=== PATIENT | male | born 1945 | race Caucasian/White ===

== ENCOUNTER 2021-06-13 12:44 | Inpatient (IN) | payer MEDICARE ==
[2021-06-13 13:25] LABS: #Monocytes 0.9 10x3/uL (0.0-1.1); #Neutrophils 12.6 10x3/uL (1.5-8.4); %Basophils 0.2 % (0.0-2.0); %Eosinophils 0.1 % (0.0-6.0); %Lymphocytes 6.7 % (18.0-47.0); %Monocytes 5.8 % (0.0-10.0); %Neutrophils 86.9 % (40.0-75.0); Hemoglobin 13.9 g/dL (13.5-17.5); Mean Corpuscular HGB CONC 34.2 g/dL (32.0-36.0); Mean Corpuscular Hemoglobin 31.4 pg (27.0-33.0); Mean Corpuscular Volume 91.9 fl (81.2-95.1); Mean Platelet Volume 9.4 fl (7.4-10.4); Platelet Count 203 10x3/uL (150-450); RBC Distribution Width 12.7 % (11.5-14.5); Red Blood Cell (RBC) Count 4.43 10x6/uL (4.32-5.72); White Blood Cell (WBC) Count 14.6 10x3/uL (3.5-10.5)
[2021-06-13 13:40] LABS: ALT (SGPT) 14 U/L (8-55); AST (SGOT) 13 U/L (5-34); Alkaline Phosphatase 80 U/L (40-110); Anion Gap 14 mmol/L (10-20); BUN (Urea Nitrogen) 18 mg/dL (8.4-25.7); Bilirubin, Total 0.8 mg/dL (0.2-1.2); CK (CPK) 76 U/L (30-200); Calc. Creatinine Clearance 0 mL/min (70-130); Calcium 9.2 mg/dL (7.8-10.44); Carbon Dioxide 24 mmol/L (23-31); Chloride 104 mmol/L (98-107); Globulin 2.4 g/dL (2.4-3.5); Glucose 106 mg/dL (83-110); Magnesium 1.5 mg/dL (1.6-2.6); Potassium 3.7 mmol/L (3.5-5.1); Protein, Total 6.4 g/dL (5.8-8.1); Sodium 138 mmol/L (136-145)
[2021-06-13 15:16] LABS: Bilirubin Neg (Negative); Blood, Urine Negative (Negative); Clarity Clear (Clear); Glucose, Urine (Dipstick) Normal (Negative); Ketone, Urine Negative (Negative); Leukocyte Negative (Negative); Nitrite Negative (Negative); Protein, Urine (Dipstick) Negative (Neg-Trace); Specific Gravity, Urine 1.015 (1.002-1.036); Urobilinogen Normal mg/dL (Less than 2)
[2021-06-13] MEDS ORDERED: Senokot S 8.6-50 MG TAB PO PRN (18:06)
[2021-06-13] MEDS ORDERED: Calcium Carbonate 500 MG ChewTAB PO PRN (18:06)
[2021-06-13] MEDS ORDERED: Ondansetron ODT 4 MG TAB PO PRN (18:06)
[2021-06-13] MEDS ORDERED: HumaLOG 300 UNITS/3 ML VIAL SC PRN ×2 (18:13)
[2021-06-13] MEDS ORDERED: Dextrose 50% Abboject 50 ML SYRINGE SLOW IVP PRN (18:13)
[2021-06-13] MEDS ORDERED: Dextrose 5% in Water 1,000 ML IV PRN (18:13)
[2021-06-13] MEDS ORDERED: predniSONE 20 MG TAB PO SCH (18:15)
[2021-06-13] MEDS ORDERED: Magnesium 2 GM/50 ML 2 GM in Premix Bag 1 BAG IVPB SCH (18:30)
[2021-06-13 20:17] VITALS: BMI 28.3
[2021-06-13] MEDS: Acetaminophen 325 MG TAB PO PRN (22:27)
[2021-06-13] MEDS: hydrALAZINE 25 MG TAB PO SCH (22:27)
[2021-06-13] MEDS: Zolpidem Tartrate 5 MG TAB PO PRN (23:12)
[2021-06-14 05:49] LABS: #Basophils 0.1 10x3/uL (0.0-0.2); #Eosinphils 0.2 10x3/uL (0.0-0.5); #Monocytes 0.7 10x3/uL (0.0-1.1); #Neutrophils 7.5 10x3/uL (1.5-8.4); %Basophils 0.5 % (0.0-2.0); %Eosinophils 2.2 % (0.0-6.0); %Lymphocytes 14.6 % (18.0-47.0); %Monocytes 6.6 % (0.0-10.0); %Neutrophils 75.6 % (40.0-75.0); Hemoglobin 12.4 g/dL (13.5-17.5); Mean Corpuscular HGB CONC 33.7 g/dL (32.0-36.0); Mean Corpuscular Hemoglobin 31.2 pg (27.0-33.0); Mean Corpuscular Volume 92.5 fl (81.2-95.1); Mean Platelet Volume 9.8 fl (7.4-10.4); Platelet Count 181 10x3/uL (150-450); RBC Distribution Width 12.6 % (11.5-14.5); Red Blood Cell (RBC) Count 3.98 10x6/uL (4.32-5.72)
[2021-06-14 05:56] LABS: Anion Gap 12 mmol/L (10-20); BUN (Urea Nitrogen) 20 mg/dL (8.4-25.7); Calc. Creatinine Clearance 79 mL/min (70-130); Calcium 8.6 mg/dL (7.8-10.44); Carbon Dioxide 24 mmol/L (23-31); Chloride 105 mmol/L (98-107); Glucose 100 mg/dL (83-110); Magnesium 1.8 mg/dL (1.6-2.6); Potassium 3.8 mmol/L (3.5-5.1); Sodium 137 mmol/L (136-145)
[2021-06-14] MEDS ORDERED: predniSONE 20 MG TAB PO SCH (08:00)
[2021-06-14] MEDS: hydrALAZINE 25 MG TAB PO SCH ×2 (09:13→21:16)
[2021-06-14] MEDS: Clopidogrel Bisulfate 75 MG TAB PO SCH (09:13)
[2021-06-14] MEDS: Amlodipine 5 MG TAB PO SCH (09:13)
[2021-06-14] MEDS: Potassium Chloride 20 MEQ TAB PO SCH ×2 (09:13→16:58)
[2021-06-14] MEDS: Aspirin Chewable 81 MG TAB PO SCH (09:14)
[2021-06-14] MEDS: Acetaminophen 325 MG TAB PO PRN ×2 (09:14→21:17)
[2021-06-14 17:01] LABS: SARS-CoV-2 PCR by NAA Not Detected (NotDetected)
[2021-06-14] MEDS: Zolpidem Tartrate 5 MG TAB PO PRN (21:17)
[2021-06-15 04:51] LABS: Anion Gap 13 mmol/L (10-20); BUN (Urea Nitrogen) 17 mg/dL (8.4-25.7); Calc. Creatinine Clearance 93 mL/min (70-130); Calcium 8.9 mg/dL (7.8-10.44); Carbon Dioxide 23 mmol/L (23-31); Chloride 105 mmol/L (98-107); Glucose 118 mg/dL (83-110); Potassium 3.7 mmol/L (3.5-5.1); Sodium 137 mmol/L (136-145)
[2021-06-15 05:03] LABS: #Eosinphils 0.2 10x3/uL (0.0-0.5); #Monocytes 0.6 10x3/uL (0.0-1.1); #Neutrophils 5.6 10x3/uL (1.5-8.4); %Basophils 0.3 % (0.0-2.0); %Eosinophils 2.1 % (0.0-6.0); %Lymphocytes 17.3 % (18.0-47.0); %Monocytes 7.8 % (0.0-10.0); Hemoglobin 13.2 g/dL (13.5-17.5); Mean Corpuscular HGB CONC 35.4 g/dL (32.0-36.0); Mean Corpuscular Volume 90.5 fl (81.2-95.1); Mean Platelet Volume 9.7 fl (7.4-10.4); Platelet Count 187 10x3/uL (150-450); RBC Distribution Width 12.4 % (11.5-14.5); Red Blood Cell (RBC) Count 4.12 10x6/uL (4.32-5.72); White Blood Cell (WBC) Count 7.7 10x3/uL (3.5-10.5)
[2021-06-15] MEDS: Amlodipine 5 MG TAB PO SCH (06:12)
[2021-06-15] MEDS: Clopidogrel Bisulfate 75 MG TAB PO SCH (09:13)
[2021-06-15] MEDS: predniSONE 20 MG TAB PO SCH (09:13)
[2021-06-15] MEDS: Potassium Chloride 20 MEQ TAB PO SCH ×2 (09:13→17:23)
[2021-06-15] MEDS: Aspirin Chewable 81 MG TAB PO SCH (09:13)
[2021-06-15] MEDS: hydrALAZINE 25 MG TAB PO SCH ×2 (09:13→22:05)
[2021-06-15] MEDS: Acetaminophen 325 MG TAB PO PRN (09:17)
[2021-06-15] MEDS ORDERED: hydrALAZINE 25 MG TAB PO SCH (12:45)
[2021-06-16 04:41] LABS: #Eosinphils 0.1 10x3/uL (0.0-0.5); #Monocytes 0.6 10x3/uL (0.0-1.1); #Neutrophils 5.3 10x3/uL (1.5-8.4); %Basophils 0.3 % (0.0-2.0); %Eosinophils 0.9 % (0.0-6.0); %Monocytes 7.9 % (0.0-10.0); %Neutrophils 71.5 % (40.0-75.0); Hemoglobin 13.5 g/dL (13.5-17.5); Mean Corpuscular HGB CONC 34.7 g/dL (32.0-36.0); Mean Corpuscular Hemoglobin 31.3 pg (27.0-33.0); Mean Corpuscular Volume 90.3 fl (81.2-95.1); Mean Platelet Volume 9.8 fl (7.4-10.4); Platelet Count 214 10x3/uL (150-450); RBC Distribution Width 12.6 % (11.5-14.5); Red Blood Cell (RBC) Count 4.31 10x6/uL (4.32-5.72); White Blood Cell (WBC) Count 7.5 10x3/uL (3.5-10.5)
[2021-06-16 04:56] LABS: Anion Gap 14 mmol/L (10-20); BUN (Urea Nitrogen) 17 mg/dL (8.4-25.7); Calc. Creatinine Clearance 91 mL/min (70-130); Calcium 8.9 mg/dL (7.8-10.44); Carbon Dioxide 22 mmol/L (23-31); Chloride 106 mmol/L (98-107); Glucose 110 mg/dL (83-110); Potassium 3.7 mmol/L (3.5-5.1); Sodium 138 mmol/L (136-145)
[2021-06-16] MEDS: Aspirin Chewable 81 MG TAB PO SCH (08:36)
[2021-06-16] MEDS: Amlodipine 10 MG TAB PO SCH (08:36)
[2021-06-16] MEDS: Clopidogrel Bisulfate 75 MG TAB PO SCH (08:36)
[2021-06-16] MEDS: predniSONE 20 MG TAB PO SCH (08:36)
[2021-06-16] MEDS: Potassium Chloride 20 MEQ TAB PO SCH ×2 (08:37→16:41)
[2021-06-16] MEDS ORDERED: hydrALAZINE 25 MG TAB PO SCH (09:00)
[2021-06-16] MEDS: Acetaminophen 325 MG TAB PO PRN ×2 (12:22→21:42)
[2021-06-16] MEDS: hydrALAZINE 25 MG TAB PO SCH (20:06)
[2021-06-17] MEDS ORDERED: hydrALAZINE 20 MG/ML VIAL SLOW IVP PRN (01:36)
[2021-06-17] MEDS: Acetaminophen 325 MG TAB PO PRN ×2 (04:08→09:49)
[2021-06-17 04:22] LABS: #Monocytes 0.7 10x3/uL (0.0-1.1); #Neutrophils 4.3 10x3/uL (1.5-8.4); %Basophils 0.4 % (0.0-2.0); %Eosinophils 0.6 % (0.0-6.0); %Lymphocytes 27.7 % (18.0-47.0); %Monocytes 9.5 % (0.0-10.0); %Neutrophils 61.4 % (40.0-75.0); Hemoglobin 14.8 g/dL (13.5-17.5); Mean Corpuscular HGB CONC 35.2 g/dL (32.0-36.0); Mean Corpuscular Hemoglobin 31.5 pg (27.0-33.0); Mean Corpuscular Volume 89.4 fl (81.2-95.1); Mean Platelet Volume 9.6 fl (7.4-10.4); Platelet Count 276 10x3/uL (150-450); RBC Distribution Width 12.4 % (11.5-14.5); White Blood Cell (WBC) Count 7.1 10x3/uL (3.5-10.5)
[2021-06-17 04:38] LABS: Anion Gap 16 mmol/L (10-20); BUN (Urea Nitrogen) 18 mg/dL (8.4-25.7); Calc. Creatinine Clearance 93 mL/min (70-130); Calcium 9.4 mg/dL (7.8-10.44); Carbon Dioxide 19 mmol/L (23-31); Chloride 106 mmol/L (98-107); Glucose 113 mg/dL (83-110); Potassium 3.8 mmol/L (3.5-5.1); Sodium 137 mmol/L (136-145)
[2021-06-17] MEDS: Amlodipine 10 MG TAB PO SCH (09:47)
[2021-06-17] MEDS: predniSONE 20 MG TAB PO SCH (09:47)
[2021-06-17] MEDS: hydrALAZINE 25 MG TAB PO SCH (09:48)
[2021-06-17] MEDS: Potassium Chloride 20 MEQ TAB PO SCH (09:48)
[2021-06-17] MEDS: Aspirin Chewable 81 MG TAB PO SCH (09:49)
[2021-06-17] MEDS: Clopidogrel Bisulfate 75 MG TAB PO SCH (09:58)
[2021-06-17] MEDS ORDERED: cloNIDine 0.1 MG TAB PO SCH (12:00)
[2021-06-17 13:19] VITALS: TEMP 97.7
[2021-06-17 14:33] VITALS: BP 158/81
[2021-06-17] MEDS ORDERED: hydrALAZINE 25 MG TAB PO SCH (15:00)
== END 2021-06-17 15:00 | DRG 552 ==
LOC: CSHERS 12:44 → CSHTELE 19:22 → UNDOADMIN 19:22 → CSHTELE 06-15 06:35
PROVIDERS: ADMIT Family Medicine; ATTEND Internal Medicine
DX: M54.31 Sciatica, right side (principal); M35.3 Polymyalgia rheumatica; I25.10 Atherosclerotic heart disease of native coronary artery without angina pectoris; I10 Essential (primary) hypertension; E78.5 Hyperlipidemia, unspecified; D72.829 Elevated white blood cell count, unspecified; E11.51 Type 2 diabetes mellitus with diabetic peripheral angiopathy without gangrene; W19.XXXA Unspecified fall, initial encounter; E78.00 Pure hypercholesterolemia, unspecified; Z88.8 Allergy status to other drugs, medicaments and biological substances; Z79.899 Other long term (current) drug therapy; Z95.1 Presence of aortocoronary bypass graft; Z98.890 Other specified postprocedural states; Z79.82 Long term (current) use of aspirin; Y92.9 Unspecified place or not applicable; Z20.822 Contact with and (suspected) exposure to COVID-19
CPT/HCPCS: 36415; 36416; 51701; 70450; 71045; 72170; 80048; 80053; 81003; 82550; 83735; 84443; 84484; 85025; 93005; J0360; J1815; J7512; U0003; U0005

== ENCOUNTER 2024-05-03 09:09 | Inpatient (IN) | payer MEDICARE ==
[2024-05-03 09:57] LABS: Actual Bicarbonate (HCO3v) 20.9 mEq/L (22-28); Analyzer IN Cardio CS ER; Base Excess -3.3 mEq/L (-2 - +2); Calcium, Ionized (venous) 1.12 mmol/L (1.16-1.32); Chloride (VBG) 102 mmol/L (98-106); Hematocrit-VBG 38 % (42.0-52.0); Hemoglobin (Hb) 12.9 g/dL (12.6-17.4); Potassium (VBG) 3.52 mmol/L (3.70-5.30); Puncture Site Other Site; RapidComm Collect By CBN; Sodium 137 mmol/L (133-146); pH (venous) 7.393 (7.32-7.43)
[2024-05-03 10:29] LABS: #Basophils 0.02 10x3/uL (0.0-0.2); #Eosinophils 0.03 10x3/uL (0.0-0.5); #Monocytes 0.56 10x3/uL (0.0-1.1); %Basophils 0.5 % (0.0-2.0); %Eosinophils 0.7 % (0.0-6.0); %Lymphocytes 21.2 % (18.0-47.0); %Monocytes 12.8 % (0.0-10.0); %Neutrophils 63.9 % (40.0-75.0); Hematocrit 35.4 % (38.8-50.0); Hemoglobin 11.9 g/dL (13.5-17.5); Mean Corpuscular HGB CONC 33.6 g/dL (32.0-36.0); Mean Corpuscular Hemoglobin 30.3 pg (27.0-33.0); Mean Corpuscular Volume 90.1 fL (81.2-95.1); Mean Platelet Volume 9.8 fL (7.4-10.4); Platelet Count 199 10x3/uL (150-450); RBC Distribution Width 13.4 % (11.5-14.5); Red Blood Cell (RBC) Count 3.93 10x6/uL (4.32-5.72); White Blood Cell (WBC) Count 4.4 10x3/uL (3.5-10.5)
[2024-05-03 10:44] LABS: ALT (SGPT) 16 U/L (8-55); AST (SGOT) 19 U/L (5-34); Albumin 3.7 g/dL (3.4-4.8); Alkaline Phosphatase 58 U/L (40-110); Anion Gap 13 mmol/L (10-20); BUN (Urea Nitrogen) 20 mg/dL (8.4-25.7); Bilirubin, Total 0.9 mg/dL (0.2-1.2); Calc. Creatinine Clearance 0 mL/min (70-130); Calcium 8.6 mg/dL (7.8-10.44); Carbon Dioxide 22 mmol/L (23-31); Chloride 107 mmol/L (98-107); Estimated GFR 87; Globulin 1.7 g/dL (2.4-3.5); Glucose 82 mg/dL (83-110); Magnesium 1.7 mg/dL (1.6-2.6); Potassium 3.6 mmol/L (3.5-5.1); Protein, Total 5.4 g/dL (5.8-8.1); Sodium 138 mmol/L (136-145)
[2024-05-03 10:47] LABS: Troponin I 0.041 ng/mL (< 0.028)
[2024-05-03 11:55] LABS: Troponin I 0.041 ng/mL (< 0.028)
[2024-05-03] MEDS ORDERED: cefTRIAXone (ROCEPHIN) 1 GM VIAL ONE (12:03)
[2024-05-03] MEDS ORDERED: Azithromycin 500 MG VIAL ONE (13:15)
[2024-05-03] MEDS ORDERED: Acetaminophen 500 MG TAB ONE (13:43)
[2024-05-03] MEDS ORDERED: Ondansetron ODT 4 MG TAB PO PRN (14:09)
[2024-05-03] MEDS ORDERED: Acetaminophen 650 MG Suppository PR PRN (14:09)
[2024-05-03] MEDS ORDERED: Acetaminophen 325 MG TAB PO PRN (14:09)
[2024-05-03] MEDS ORDERED: Ipratropium/Albuterol 3 ML NEB NEB PRN (14:14)
[2024-05-03] MEDS ORDERED: Dextrose 5% in Water 1,000 ML IV PRN (14:17)
[2024-05-03] MEDS ORDERED: Insulin Lispro 100 UNIT/ML 10 ML VIAL SC PRN ×2 (14:17)
[2024-05-03] MEDS ORDERED: Dextrose 50% Abboject 50 ML SYRINGE SLOW IVP PRN (14:17)
[2024-05-03] MEDS ORDERED: Glucagon 1 MG/ML KIT IM PRN (14:17)
[2024-05-03 14:27] LABS: Bilirubin Neg (Negative); Blood, Urine Negative (Negative); Clarity Clear (Clear); Glucose, Urine (Dipstick) Normal (Negative); Ketone, Urine Negative (Negative); Leukocyte 500 (Negative); Nitrite Negative (Negative); Protein, Urine (Dipstick) 15 mg/dl (Neg-Trace); Specific Gravity, Urine 1.015 (1.005-1.030); Urobilinogen Normal mg/dL (Less than 2)
[2024-05-03 15:29] VITALS: BMI 28.1
[2024-05-03] MEDS ORDERED: cefTRIAXone\\ROCEPHIN 1 GM in Sodium Chloride 0.9% 100 ML IVPB SCH (16:00)
[2024-05-03 16:12] LABS: CAUTI Indications for Culture Alt mental st,lethar; RBC/HPF 0-3 HPF (0-3); WBC/HPF 0-3 HPF (0-3)
[2024-05-03 16:13] LABS: Squamous Epithelial 0-3 HPF (0-3)
[2024-05-03 16:17] LABS: Bacteria/HPF 1+ HPF (None Seen)
[2024-05-03 16:19] LABS: Urine Culture Reflex No No
[2024-05-03] MEDS: Potassium Chloride 20 MEQ, Admixture Fee 1 EACH in Lactated Ringer's 1,000 ML IV SCH (16:57)
[2024-05-03] MEDS: predniSONE 20 MG TAB PO SCH (16:57)
[2024-05-03] MEDS: Cilostazol 100 MG TAB PO SCH (20:41)
[2024-05-03] MEDS: hydrALAZINE 25 MG TAB PO SCH (20:42)
[2024-05-03] MEDS: Famotidine 20 MG TAB PO SCH (20:43)
[2024-05-03] MEDS: Ipratropium/Albuterol 3 ML NEB NEB SCH (21:04)
[2024-05-04 03:54] LABS: Anion Gap 15 mmol/L (10-20); BUN (Urea Nitrogen) 13 mg/dL (8.4-25.7); Calc. Creatinine Clearance 98 mL/min (70-130); Calcium 8.7 mg/dL (7.8-10.44); Carbon Dioxide 19 mmol/L (23-31); Chloride 106 mmol/L (98-107); Estimated GFR 91; Glucose 96 mg/dL (83-110); Potassium 4.1 mmol/L (3.5-5.1); Sodium 136 mmol/L (136-145)
[2024-05-04 04:00] LABS: #Basophils 0.02 10x3/uL (0.0-0.2); #Eosinophils 0.03 10x3/uL (0.0-0.5); #Monocytes 0.32 10x3/uL (0.0-1.1); #Neutrophils 4.82 10x3/uL (1.5-8.4); %Basophils 0.3 % (0.0-2.0); %Eosinophils 0.5 % (0.0-6.0); %Lymphocytes 9.8 % (18.0-47.0); %Monocytes 5.5 % (0.0-10.0); %Neutrophils 83.4 % (40.0-75.0); Hematocrit 38.4 % (38.8-50.0); Hemoglobin 12.8 g/dL (13.5-17.5); Mean Corpuscular HGB CONC 33.3 g/dL (32.0-36.0); Mean Corpuscular Hemoglobin 29.9 pg (27.0-33.0); Mean Corpuscular Volume 89.7 fL (81.2-95.1); Mean Platelet Volume 9.7 fL (7.4-10.4); Platelet Count 220 10x3/uL (150-450); RBC Distribution Width 13.2 % (11.5-14.5); Red Blood Cell (RBC) Count 4.28 10x6/uL (4.32-5.72); White Blood Cell (WBC) Count 5.8 10x3/uL (3.5-10.5)
[2024-05-04] MEDS: Clotrimazole 1% Cream 15 GM TUBE TOP SCH (06:48)
[2024-05-04] MEDS: Enoxaparin 40 MG (0.4 mL) SYRINGE SC SCH (09:22)
[2024-05-04] MEDS: Aspirin 81 mg Enteric Coated Tablet PO SCH (09:23)
[2024-05-04] MEDS: Tamsulosin HCl 0.4 MG CAP PO SCH (09:24)
[2024-05-04] MEDS: Clopidogrel Bisulfate 75 MG TAB PO SCH (09:24)
[2024-05-04] MEDS: Amlodipine 10 MG TAB PO SCH (09:24)
[2024-05-04] MEDS: predniSONE 20 MG TAB PO SCH (09:25)
[2024-05-04] MEDS: Sertraline 100 MG TAB PO SCH (09:26)
[2024-05-04] MEDS: cefTRIAXone\\ROCEPHIN 1 GM in Sodium Chloride 0.9% 100 ML IVPB SCH (12:17)
[2024-05-04] MEDS: Azithromycin 500 MG in Sodium Chloride 0.9% 250 ML 250 ML IVPB SCH (13:35)
[2024-05-05] MEDS: Ondansetron PF 4 MG/2 ML Vial IVP PRN (13:30)
[2024-05-06] MEDS: predniSONE 20 MG TAB PO SCH (08:25)
[2024-05-07] MEDS: Pregabalin 50 MG CAP PO SCH (20:29)
[2024-05-07] MEDS: Hydroxychloroquine Sulfate 200 MG TAB PO SCH (20:29)
[2024-05-08 04:06] LABS: Anion Gap 14 mmol/L (10-20); BUN (Urea Nitrogen) 21 mg/dL (8.4-25.7); Calc. Creatinine Clearance 88 mL/min (70-130); Calcium 8.7 mg/dL (7.8-10.44); Carbon Dioxide 21 mmol/L (23-31); Chloride 106 mmol/L (98-107); Estimated GFR 88; Glucose 105 mg/dL (83-110); Potassium 3.5 mmol/L (3.5-5.1); Sodium 137 mmol/L (136-145)
[2024-05-08] MEDS ORDERED: Non-Formulary Medication 1 EACH (Bempedoic Acid/Ezetimibe [Nexlizet 180-10 Mg Tablet] 1 EA PO SCH (09:00)
[2024-05-08] MEDS: Cholecalciferol 1,000 UNITS (25 MCG) TAB PO SCH (09:31)
[2024-05-08] MEDS: LevoFLOXacin 750 MG TAB PO SCH (10:59)
[2024-05-09 04:19] LABS: #Basophils 0.03 10x3/uL (0.0-0.2); #Eosinophils 0.05 10x3/uL (0.0-0.5); #Monocytes 0.55 10x3/uL (0.0-1.1); #Neutrophils 3.35 10x3/uL (1.5-8.4); %Basophils 0.6 % (0.0-2.0); %Lymphocytes 21.6 % (18.0-47.0); %Monocytes 10.7 % (0.0-10.0); %Neutrophils 64.9 % (40.0-75.0); Hemoglobin 12.2 g/dL (13.5-17.5); Mean Corpuscular HGB CONC 33.9 g/dL (32.0-36.0); Mean Corpuscular Hemoglobin 30.3 pg (27.0-33.0); Mean Corpuscular Volume 89.6 fL (81.2-95.1); Mean Platelet Volume 9.7 fL (7.4-10.4); Platelet Count 206 10x3/uL (150-450); Red Blood Cell (RBC) Count 4.02 10x6/uL (4.32-5.72); White Blood Cell (WBC) Count 5.2 10x3/uL (3.5-10.5)
[2024-05-09] MEDS: LevoFLOXacin 750 MG TAB PO SCH (05:33)
[2024-05-09 15:54] VITALS: BP 140/66; TEMP 98
== END 2024-05-09 19:15 | disposition home or self-care (01) | DRG 193 ==
LOC: CSHERS 09:09 → CSHTELE 13:22 → OBSVTOIN 05-05 07:07
PROVIDERS: ADMIT Internal Medicine; ATTEND Family Medicine
DX: J15.9 Unspecified bacterial pneumonia (principal); G93.41 Metabolic encephalopathy; N17.9 Acute kidney failure, unspecified; E78.5 Hyperlipidemia, unspecified; I10 Essential (primary) hypertension; I25.10 Atherosclerotic heart disease of native coronary artery without angina pectoris; E11.51 Type 2 diabetes mellitus with diabetic peripheral angiopathy without gangrene; M35.3 Polymyalgia rheumatica; F32.A Depression, unspecified; E86.0 Dehydration; Z95.1 Presence of aortocoronary bypass graft; Z79.52 Long term (current) use of systemic steroids; Z95.5 Presence of coronary angioplasty implant and graft; Z79.899 Other long term (current) drug therapy; Z79.84 Long term (current) use of oral hypoglycemic drugs; Z88.8 Allergy status to other drugs, medicaments and biological substances; Z79.82 Long term (current) use of aspirin; Z79.02 Long term (current) use of antithrombotics/antiplatelets
CPT/HCPCS: 36415; 36416; 70450; 71045; 80048; 80053; 81001; 82805; 83735; 84484; 85025; 93005; 93010; 94760; 94762; 96372; 96374; 96375; 96376; G0378; J0456; J0696; J1650; J2405; J3480; J7050; J7120; J7512; J7620

== ENCOUNTER 2024-12-02 18:12 | Inpatient (IN) | payer MEDICARE ==
[~2024-12-02 18:12] MED LIST: Iopamidol 370 76% 100 ML VIAL ONE
[2024-12-02 18:46] LABS: #Basophils Less than 0.03 10x3/uL (0.0-0.2); #Eosinophils Less than 0.03 10x3/uL (0.0-0.5); #Monocytes 0.55 10x3/uL (0.0-1.1); #Neutrophils 7.84 10x3/uL (1.5-8.4); %Basophils 0.2 % (0.0-2.0); %Eosinophils 0.1 % (0.0-6.0); %Lymphocytes 9.0 % (18.0-47.0); %Monocytes 5.9 % (0.0-10.0); %Neutrophils 83.6 % (40.0-75.0); Hematocrit 31.2 % (38.8-50.0); Hemoglobin 10.2 g/dL (13.5-17.5); Mean Corpuscular Hemoglobin 30.4 pg (27.0-33.0); Mean Corpuscular Volume 92.9 fL (81.2-95.1); Platelet Count 221 10x3/uL (150-450); Red Blood Cell (RBC) Count 3.36 10x6/uL (4.32-5.72); White Blood Cell (WBC) Count 9.37 10x3/uL (3.5-10.5)
[2024-12-02 19:05] LABS: ALT (SGPT) 15 U/L (Less than 45); AST (SGOT) 15 U/L (11-34); Albumin 3.5 g/dL (3.1-4.5); Alkaline Phosphatase 65 U/L (40-110); Anion Gap 16 mmol/L (10-20); BUN (Urea Nitrogen) 28 mg/dL (8.4-25.7); Bilirubin, Total 0.5 mg/dL (0.3-1.2); Calc. Creatinine Clearance 0 mL/min (70-130); Calcium 8.7 mg/dL (7.8-10.44); Carbon Dioxide 23 mmol/L (23-31); Chloride 107 mmol/L (98-107); Globulin 2.1 g/dL (2.4-3.5); Glucose 179 mg/dL (83-110); Potassium 4.4 mmol/L (3.5-5.1); Sodium 142 mmol/L (136-145)
[2024-12-02 19:08] LABS: Troponin I 0.020 ng/mL (< 0.028)
[2024-12-02] MEDS ORDERED: Glucagon 1 MG/ML KIT IM PRN (21:34)
[2024-12-02] MEDS ORDERED: Ondansetron PF 4 MG/2 ML Vial IVP PRN (21:34)
[2024-12-02] MEDS ORDERED: Calcium Carbonate 500 MG ChewTAB PO PRN (21:34)
[2024-12-02] MEDS ORDERED: Dextrose 50% Abboject 50 ML SYRINGE SLOW IVP PRN (21:34)
[2024-12-02 21:59] LABS: INR-International Normal Ratio 1.3; PTT 31.6 sec (22.0-33.0); Prothrombin Time 13.5 sec (9.5-12.1)
[2024-12-02 23:08] VITALS: BMI 31.1
[2024-12-03] MEDS: Vancomycin 1 GM in Sodium Chloride 0.9% 250 ML 250 ML IVPB SCH ×2 (01:05→20:41)
[2024-12-03 03:57] LABS: #Basophils Less than 0.03 10x3/uL (0.0-0.2); #Eosinophils 0.05 10x3/uL (0.0-0.5); #Monocytes 0.54 10x3/uL (0.0-1.1); #Neutrophils 4.55 10x3/uL (1.5-8.4); %Basophils 0.2 % (0.0-2.0); %Eosinophils 0.8 % (0.0-6.0); %Lymphocytes 18.7 % (18.0-47.0); %Monocytes 8.3 % (0.0-10.0); %Neutrophils 70.3 % (40.0-75.0); Hematocrit 30.3 % (38.8-50.0); Hemoglobin 9.8 g/dL (13.5-17.5); Mean Corpuscular Hemoglobin 29.8 pg (27.0-33.0); Mean Corpuscular Volume 92.1 fL (81.2-95.1); Platelet Count 189 10x3/uL (150-450); Red Blood Cell (RBC) Count 3.29 10x6/uL (4.32-5.72); White Blood Cell (WBC) Count 6.47 10x3/uL (3.5-10.5)
[2024-12-03 04:10] LABS: Vancomycin, Random 33.6 ug/mL (See Comment)
[2024-12-03 04:17] LABS: Anion Gap 12 mmol/L (10-20); BUN (Urea Nitrogen) 23 mg/dL (8.4-25.7); Calc. Creatinine Clearance 72 mL/min (70-130); Calcium 8.4 mg/dL (7.8-10.44); Carbon Dioxide 27 mmol/L (23-31); Chloride 109 mmol/L (98-107); Glucose 89 mg/dL (83-110); Potassium 4.5 mmol/L (3.5-5.1); Sodium 143 mmol/L (136-145)
[2024-12-03 08:00] LABS: PTT 122.0 sec (22.0-33.0)
[2024-12-03] MEDS ORDERED: predniSONE 20 MG TAB PO SCH (08:00)
[2024-12-03] MEDS: Pantoprazole 40 MG DR.TAB PO SCH (09:42)
[2024-12-03] MEDS: Losartan 50 MG TAB PO SCH (09:42)
[2024-12-03] MEDS: Pregabalin 50 MG CAP PO SCH (09:43)
[2024-12-03] MEDS: Sertraline 25 MG TAB PO SCH (09:43)
[2024-12-03] MEDS: Cholecalciferol 1,000 UNITS (25 MCG) TAB PO SCH (09:44)
[2024-12-03] MEDS: Metoprolol Succinate XL 25 MG ER.TAB PO SCH (09:45)
[2024-12-03] MEDS ORDERED: Vancomycin 1.5 GRAM/300 ML BAG 1.5 GM in Premix 1 BAG IVPB SCH (21:00)
[2024-12-04 04:41] LABS: #Basophils Less than 0.03 10x3/uL (0.0-0.2); #Eosinophils 0.09 10x3/uL (0.0-0.5); #Monocytes 0.52 10x3/uL (0.0-1.1); #Neutrophils 4.79 10x3/uL (1.5-8.4); %Basophils 0.3 % (0.0-2.0); %Eosinophils 1.3 % (0.0-6.0); %Lymphocytes 18.7 % (18.0-47.0); %Monocytes 7.7 % (0.0-10.0); %Neutrophils 70.5 % (40.0-75.0); Hematocrit 30.8 % (38.8-50.0); Hemoglobin 9.8 g/dL (13.5-17.5); Mean Corpuscular Hemoglobin 28.9 pg (27.0-33.0); Mean Corpuscular Volume 90.9 fL (81.2-95.1); Platelet Count 206 10x3/uL (150-450); Red Blood Cell (RBC) Count 3.39 10x6/uL (4.32-5.72); White Blood Cell (WBC) Count 6.79 10x3/uL (3.5-10.5)
[2024-12-04 05:01] LABS: Anion Gap 15 mmol/L (10-20); BUN (Urea Nitrogen) 19 mg/dL (8.4-25.7); Calc. Creatinine Clearance 75 mL/min (70-130); Calcium 8.6 mg/dL (7.8-10.44); Carbon Dioxide 25 mmol/L (23-31); Chloride 107 mmol/L (98-107); Glucose 96 mg/dL (83-110); Potassium 4.5 mmol/L (3.5-5.1); Sodium 142 mmol/L (136-145); Vancomycin, Random 16.8 ug/mL (See Comment)
[2024-12-04] MEDS: Acetaminophen 325 MG TAB PO PRN (09:20)
[2024-12-04] MEDS: Vancomycin 1.5 GRAM/300 ML BAG 1.5 GM in Premix 1 BAG IVPB SCH (21:04)
[2024-12-05 04:28] LABS: #Basophils Less than 0.03 10x3/uL (0.0-0.2); #Eosinophils 0.13 10x3/uL (0.0-0.5); #Monocytes 0.46 10x3/uL (0.0-1.1); #Neutrophils 4.24 10x3/uL (1.5-8.4); %Basophils 0.3 % (0.0-2.0); %Eosinophils 2.1 % (0.0-6.0); %Lymphocytes 18.6 % (18.0-47.0); %Monocytes 7.6 % (0.0-10.0); %Neutrophils 69.8 % (40.0-75.0); Hematocrit 33.5 % (38.8-50.0); Hemoglobin 10.7 g/dL (13.5-17.5); Mean Corpuscular Hemoglobin 28.9 pg (27.0-33.0); Mean Corpuscular Volume 90.5 fL (81.2-95.1); Platelet Count 198 10x3/uL (150-450); Red Blood Cell (RBC) Count 3.70 10x6/uL (4.32-5.72); White Blood Cell (WBC) Count 6.08 10x3/uL (3.5-10.5)
[2024-12-05 04:44] LABS: Magnesium 1.8 mg/dL (1.6-2.6)
[2024-12-05] MEDS: [UNRECOGNIZED DRUG - OTHER] PO SCH (09:15)
[2024-12-06 05:12] LABS: #Basophils 0.03 10x3/uL (0.0-0.2); #Eosinophils 0.11 10x3/uL (0.0-0.5); #Monocytes 0.52 10x3/uL (0.0-1.1); #Neutrophils 4.46 10x3/uL (1.5-8.4); %Basophils 0.5 % (0.0-2.0); %Eosinophils 1.8 % (0.0-6.0); %Lymphocytes 16.7 % (18.0-47.0); %Monocytes 8.3 % (0.0-10.0); %Neutrophils 70.9 % (40.0-75.0); Hematocrit 36.4 % (38.8-50.0); Hemoglobin 11.6 g/dL (13.5-17.5); Mean Corpuscular Hemoglobin 28.9 pg (27.0-33.0); Mean Corpuscular Volume 90.5 fL (81.2-95.1); Platelet Count 229 10x3/uL (150-450); Red Blood Cell (RBC) Count 4.02 10x6/uL (4.32-5.72); White Blood Cell (WBC) Count 6.28 10x3/uL (3.5-10.5)
[2024-12-06 05:27] LABS: Vancomycin, Random 29.0 ug/mL (See Comment)
[2024-12-06 05:28] LABS: ALT (SGPT) 12 U/L (Less than 45); AST (SGOT) 15 U/L (11-34); Albumin 3.0 g/dL (3.1-4.5); Alkaline Phosphatase 62 U/L (40-110); Anion Gap 14 mmol/L (10-20); BUN (Urea Nitrogen) 18 mg/dL (8.4-25.7); Bilirubin, Total 0.5 mg/dL (0.3-1.2); Calc. Creatinine Clearance 72 mL/min (70-130); Calcium 8.9 mg/dL (7.8-10.44); Carbon Dioxide 24 mmol/L (23-31); Chloride 105 mmol/L (98-107); Globulin 2.6 g/dL (2.4-3.5); Glucose 93 mg/dL (83-110); Potassium 4.5 mmol/L (3.5-5.1); Sodium 138 mmol/L (136-145)
[2024-12-06] MEDS: VANCOMYCIN 1.25 GM/250 ML BAG 1.25 GM in Premix 1 BAG IVPB SCH (20:57)
[2024-12-07 05:14] LABS: #Basophils Less than 0.03 10x3/uL (0.0-0.2); #Eosinophils 0.16 10x3/uL (0.0-0.5); #Monocytes 0.54 10x3/uL (0.0-1.1); #Neutrophils 3.79 10x3/uL (1.5-8.4); %Basophils 0.3 % (0.0-2.0); %Eosinophils 2.8 % (0.0-6.0); %Lymphocytes 20.0 % (18.0-47.0); %Monocytes 9.3 % (0.0-10.0); %Neutrophils 65.5 % (40.0-75.0); Hematocrit 31.2 % (38.8-50.0); Hemoglobin 10.1 g/dL (13.5-17.5); Mean Corpuscular Hemoglobin 29.2 pg (27.0-33.0); Mean Corpuscular Volume 90.2 fL (81.2-95.1); Platelet Count 211 10x3/uL (150-450); Red Blood Cell (RBC) Count 3.46 10x6/uL (4.32-5.72); White Blood Cell (WBC) Count 5.79 10x3/uL (3.5-10.5)
[2024-12-07 05:28] LABS: ALT (SGPT) 13 U/L (Less than 45); AST (SGOT) 18 U/L (11-34); Albumin 2.9 g/dL (3.1-4.5); Alkaline Phosphatase 58 U/L (40-110); Anion Gap 11 mmol/L (10-20); BUN (Urea Nitrogen) 25 mg/dL (8.4-25.7); Bilirubin, Total 0.4 mg/dL (0.3-1.2); Calc. Creatinine Clearance 68 mL/min (70-130); Calcium 8.5 mg/dL (7.8-10.44); Carbon Dioxide 24 mmol/L (23-31); Chloride 107 mmol/L (98-107); Globulin 2.6 g/dL (2.4-3.5); Glucose 89 mg/dL (83-110); Potassium 4.4 mmol/L (3.5-5.1); Sodium 138 mmol/L (136-145)
[2024-12-07] MEDS ORDERED: Lidocaine 1% (PF) 30 ML VIAL ONE (13:24)
[2024-12-07] MEDS ORDERED: Heparin 10,000 UNITS/ 10 ML VIAL ONE (13:24)
[2024-12-08 04:14] LABS: #Basophils 0.03 10x3/uL (0.0-0.2); #Eosinophils 0.14 10x3/uL (0.0-0.5); #Monocytes 0.78 10x3/uL (0.0-1.1); #Neutrophils 6.08 10x3/uL (1.5-8.4); %Basophils 0.4 % (0.0-2.0); %Eosinophils 1.7 % (0.0-6.0); %Lymphocytes 12.3 % (18.0-47.0); %Monocytes 9.6 % (0.0-10.0); %Neutrophils 74.6 % (40.0-75.0); Hematocrit 30.9 % (38.8-50.0); Hemoglobin 10.3 g/dL (13.5-17.5); Mean Corpuscular Hemoglobin 29.7 pg (27.0-33.0); Mean Corpuscular Volume 89.0 fL (81.2-95.1); Platelet Count 208 10x3/uL (150-450); Red Blood Cell (RBC) Count 3.47 10x6/uL (4.32-5.72); White Blood Cell (WBC) Count 8.14 10x3/uL (3.5-10.5)
[2024-12-08 04:28] LABS: Vancomycin, Random 28.5 ug/mL (See Comment)
[2024-12-08 04:31] LABS: ALT (SGPT) 15 U/L (Less than 45); AST (SGOT) 22 U/L (11-34); Albumin 2.9 g/dL (3.1-4.5); Alkaline Phosphatase 65 U/L (40-110); Anion Gap 13 mmol/L (10-20); BUN (Urea Nitrogen) 20 mg/dL (8.4-25.7); Bilirubin, Total 0.6 mg/dL (0.3-1.2); Calc. Creatinine Clearance 82 mL/min (70-130); Calcium 8.2 mg/dL (7.8-10.44); Carbon Dioxide 22 mmol/L (23-31); Chloride 105 mmol/L (98-107); Globulin 2.4 g/dL (2.4-3.5); Glucose 81 mg/dL (83-110); Potassium 4.2 mmol/L (3.5-5.1); Sodium 136 mmol/L (136-145)
[2024-12-08] MEDS ORDERED: Heparin 10,000 UNITS/ 10 ML VIAL SLOW IVP SCH (08:00)
[2024-12-08] MEDS: Heparin 10,000 UNITS/ 10 ML VIAL SLOW IVP SCH (10:04)
[2024-12-08 17:32] LABS: PTT 131.6 sec (22.0-33.0)
[2024-12-08] MEDS: Sertraline 25 MG TAB PO SCH (20:45)
[2024-12-09 05:22] LABS: #Basophils Less than 0.03 10x3/uL (0.0-0.2); #Eosinophils 0.12 10x3/uL (0.0-0.5); #Monocytes 0.70 10x3/uL (0.0-1.1); #Neutrophils 4.95 10x3/uL (1.5-8.4); %Basophils 0.3 % (0.0-2.0); %Eosinophils 1.7 % (0.0-6.0); %Lymphocytes 15.4 % (18.0-47.0); %Monocytes 10.1 % (0.0-10.0); %Neutrophils 71.3 % (40.0-75.0); Hematocrit 28.8 % (38.8-50.0); Hemoglobin 9.5 g/dL (13.5-17.5); Mean Corpuscular Hemoglobin 28.7 pg (27.0-33.0); Mean Corpuscular Volume 87.0 fL (81.2-95.1); Platelet Count 213 10x3/uL (150-450); Red Blood Cell (RBC) Count 3.31 10x6/uL (4.32-5.72); White Blood Cell (WBC) Count 6.94 10x3/uL (3.5-10.5)
[2024-12-09 05:38] LABS: ALT (SGPT) 15 U/L (Less than 45); AST (SGOT) 21 U/L (11-34); Albumin 2.9 g/dL (3.1-4.5); Alkaline Phosphatase 61 U/L (40-110); Anion Gap 12 mmol/L (10-20); BUN (Urea Nitrogen) 18 mg/dL (8.4-25.7); Bilirubin, Total 0.7 mg/dL (0.3-1.2); Calc. Creatinine Clearance 80 mL/min (70-130); Calcium 8.4 mg/dL (7.8-10.44); Carbon Dioxide 22 mmol/L (23-31); Chloride 105 mmol/L (98-107); Globulin 2.6 g/dL (2.4-3.5); Glucose 97 mg/dL (83-110); Potassium 3.9 mmol/L (3.5-5.1); Sodium 135 mmol/L (136-145)
[2024-12-10 03:34] LABS: #Basophils 0.03 10x3/uL (0.0-0.2); #Eosinophils 0.11 10x3/uL (0.0-0.5); #Monocytes 0.87 10x3/uL (0.0-1.1); #Neutrophils 4.89 10x3/uL (1.5-8.4); %Basophils 0.4 % (0.0-2.0); %Eosinophils 1.5 % (0.0-6.0); %Lymphocytes 17.2 % (18.0-47.0); %Monocytes 12.0 % (0.0-10.0); %Neutrophils 67.5 % (40.0-75.0); Hematocrit 29.6 % (38.8-50.0); Hemoglobin 9.8 g/dL (13.5-17.5); Mean Corpuscular Hemoglobin 29.3 pg (27.0-33.0); Mean Corpuscular Volume 88.6 fL (81.2-95.1); Platelet Count 228 10x3/uL (150-450); Red Blood Cell (RBC) Count 3.34 10x6/uL (4.32-5.72); White Blood Cell (WBC) Count 7.25 10x3/uL (3.5-10.5)
[2024-12-10 03:48] LABS: ALT (SGPT) 15 U/L (Less than 45); AST (SGOT) 19 U/L (11-34); Albumin 2.9 g/dL (3.1-4.5); Alkaline Phosphatase 64 U/L (40-110); Anion Gap 14 mmol/L (10-20); BUN (Urea Nitrogen) 25 mg/dL (8.4-25.7); Bilirubin, Total 0.6 mg/dL (0.3-1.2); Calc. Creatinine Clearance 71 mL/min (70-130); Calcium 8.8 mg/dL (7.8-10.44); Carbon Dioxide 22 mmol/L (23-31); Chloride 106 mmol/L (98-107); Globulin 2.8 g/dL (2.4-3.5); Glucose 104 mg/dL (83-110); Potassium 4.0 mmol/L (3.5-5.1); Sodium 138 mmol/L (136-145)
[2024-12-10 10:33] VITALS: BMI 29.6
[2024-12-10] MEDS ORDERED: Ondansetron PF 4 MG/2 ML Vial ONE (15:51)
[2024-12-10] MEDS ORDERED: Rocuronium Bromide 10 MG/ML (10ML VIAL) ONE (15:51)
[2024-12-10] MEDS ORDERED: PHENYLEPHRINE-NS 100 MCG/ML 10 ML SYRINGE ONE (15:51)
[2024-12-10] MEDS ORDERED: Hydrocortisone Sod Succ/PF 100 mg/2 ml Vial ONE (15:51)
[2024-12-10] MEDS ORDERED: Lidocaine 1% PF 5 ML VIAL ONE (15:51)
[2024-12-10] MEDS: Ketorolac Tromethamine 30 MG (1 mL) VIAL IVP SCH (18:38)
[2024-12-11 05:35] LABS: #Basophils Less than 0.03 10x3/uL (0.0-0.2); #Eosinophils Less than 0.03 10x3/uL (0.0-0.5); #Monocytes 0.88 10x3/uL (0.0-1.1); #Neutrophils 7.35 10x3/uL (1.5-8.4); %Basophils 0.2 % (0.0-2.0); %Eosinophils 0.0 % (0.0-6.0); %Lymphocytes 8.1 % (18.0-47.0); %Monocytes 9.7 % (0.0-10.0); %Neutrophils 81.0 % (40.0-75.0); Hematocrit 27.3 % (38.8-50.0); Hemoglobin 9.0 g/dL (13.5-17.5); Mean Corpuscular Hemoglobin 29.2 pg (27.0-33.0); Mean Corpuscular Volume 88.6 fL (81.2-95.1); Platelet Count 243 10x3/uL (150-450); Red Blood Cell (RBC) Count 3.08 10x6/uL (4.32-5.72); White Blood Cell (WBC) Count 9.08 10x3/uL (3.5-10.5)
[2024-12-11 05:52] LABS: ALT (SGPT) 14 U/L (Less than 45); AST (SGOT) 21 U/L (11-34); Albumin 2.7 g/dL (3.1-4.5); Alkaline Phosphatase 59 U/L (40-110); Anion Gap 12 mmol/L (10-20); BUN (Urea Nitrogen) 24 mg/dL (8.4-25.7); Bilirubin, Total 0.4 mg/dL (0.3-1.2); Calc. Creatinine Clearance 83 mL/min (70-130); Calcium 8.2 mg/dL (7.8-10.44); Carbon Dioxide 22 mmol/L (23-31); Chloride 107 mmol/L (98-107); Globulin 2.7 g/dL (2.4-3.5); Glucose 142 mg/dL (83-110); Potassium 4.1 mmol/L (3.5-5.1); Sodium 137 mmol/L (136-145)
[2024-12-12 05:44] LABS: #Basophils 0.05 10x3/uL (0.0-0.2); #Eosinophils 0.11 10x3/uL (0.0-0.5); #Monocytes 0.69 10x3/uL (0.0-1.1); #Neutrophils 4.38 10x3/uL (1.5-8.4); %Basophils 0.8 % (0.0-2.0); %Eosinophils 1.7 % (0.0-6.0); %Lymphocytes 19.8 % (18.0-47.0); %Monocytes 10.4 % (0.0-10.0); %Neutrophils 66.1 % (40.0-75.0); Hematocrit 28.1 % (38.8-50.0); Hemoglobin 8.7 g/dL (13.5-17.5); Mean Corpuscular Hemoglobin 28.2 pg (27.0-33.0); Mean Corpuscular Volume 91.2 fL (81.2-95.1); Platelet Count 261 10x3/uL (150-450); Red Blood Cell (RBC) Count 3.08 10x6/uL (4.32-5.72); White Blood Cell (WBC) Count 6.62 10x3/uL (3.5-10.5)
[2024-12-12 05:57] LABS: ALT (SGPT) 15 U/L (Less than 45); AST (SGOT) 25 U/L (11-34); Albumin 2.7 g/dL (3.1-4.5); Alkaline Phosphatase 56 U/L (40-110); Anion Gap 12 mmol/L (10-20); BUN (Urea Nitrogen) 30 mg/dL (8.4-25.7); Bilirubin, Total 0.3 mg/dL (0.3-1.2); Calc. Creatinine Clearance 76 mL/min (70-130); Calcium 8.3 mg/dL (7.8-10.44); Carbon Dioxide 24 mmol/L (23-31); Chloride 109 mmol/L (98-107); Globulin 2.6 g/dL (2.4-3.5); Glucose 94 mg/dL (83-110); Potassium 4.0 mmol/L (3.5-5.1); Sodium 141 mmol/L (136-145)
[2024-12-13 05:05] LABS: #Basophils 0.03 10x3/uL (0.0-0.2); #Eosinophils 0.15 10x3/uL (0.0-0.5); #Monocytes 0.66 10x3/uL (0.0-1.1); #Neutrophils 4.90 10x3/uL (1.5-8.4); %Basophils 0.4 % (0.0-2.0); %Eosinophils 2.1 % (0.0-6.0); %Lymphocytes 17.4 % (18.0-47.0); %Monocytes 9.4 % (0.0-10.0); %Neutrophils 69.8 % (40.0-75.0); Hematocrit 26.9 % (38.8-50.0); Hemoglobin 8.9 g/dL (13.5-17.5); Mean Corpuscular Hemoglobin 29.5 pg (27.0-33.0); Mean Corpuscular Volume 89.1 fL (81.2-95.1); Platelet Count 255 10x3/uL (150-450); Red Blood Cell (RBC) Count 3.02 10x6/uL (4.32-5.72); White Blood Cell (WBC) Count 7.02 10x3/uL (3.5-10.5)
[2024-12-13 05:26] LABS: ALT (SGPT) 17 U/L (Less than 45); AST (SGOT) 30 U/L (11-34); Albumin 2.6 g/dL (3.1-4.5); Alkaline Phosphatase 57 U/L (40-110); Anion Gap 14 mmol/L (10-20); BUN (Urea Nitrogen) 32 mg/dL (8.4-25.7); Bilirubin, Total 0.5 mg/dL (0.3-1.2); Calc. Creatinine Clearance 84 mL/min (70-130); Calcium 8.1 mg/dL (7.8-10.44); Carbon Dioxide 21 mmol/L (23-31); Chloride 110 mmol/L (98-107); Globulin 2.7 g/dL (2.4-3.5); Glucose 85 mg/dL (83-110); Potassium 4.2 mmol/L (3.5-5.1); Sodium 141 mmol/L (136-145)
[2024-12-13] MEDS: Finasteride 5 MG TAB PO SCH (08:46)
[2024-12-14 04:46] LABS: #Basophils 0.04 10x3/uL (0.0-0.2); #Eosinophils 0.15 10x3/uL (0.0-0.5); #Monocytes 0.63 10x3/uL (0.0-1.1); #Neutrophils 5.16 10x3/uL (1.5-8.4); %Basophils 0.6 % (0.0-2.0); %Eosinophils 2.1 % (0.0-6.0); %Lymphocytes 16.5 % (18.0-47.0); %Monocytes 8.7 % (0.0-10.0); %Neutrophils 71.4 % (40.0-75.0); Hematocrit 27.3 % (38.8-50.0); Hemoglobin 9.0 g/dL (13.5-17.5); Mean Corpuscular Hemoglobin 29.4 pg (27.0-33.0); Mean Corpuscular Volume 89.2 fL (81.2-95.1); Platelet Count 287 10x3/uL (150-450); Red Blood Cell (RBC) Count 3.06 10x6/uL (4.32-5.72); White Blood Cell (WBC) Count 7.22 10x3/uL (3.5-10.5)
[2024-12-14 05:14] LABS: ALT (SGPT) 17 U/L (Less than 45); AST (SGOT) 31 U/L (11-34); Albumin 2.6 g/dL (3.1-4.5); Alkaline Phosphatase 59 U/L (40-110); Anion Gap 15 mmol/L (10-20); BUN (Urea Nitrogen) 31 mg/dL (8.4-25.7); Bilirubin, Total 0.5 mg/dL (0.3-1.2); Calc. Creatinine Clearance 81 mL/min (70-130); Calcium 8.2 mg/dL (7.8-10.44); Carbon Dioxide 20 mmol/L (23-31); Chloride 109 mmol/L (98-107); Globulin 2.8 g/dL (2.4-3.5); Glucose 107 mg/dL (83-110); Potassium 4.3 mmol/L (3.5-5.1); Sodium 140 mmol/L (136-145)
[2024-12-14 05:24] LABS: Troponin I 0.052 ng/mL (< 0.028)
[2024-12-14 11:45] LABS: Troponin I 0.049 ng/mL (< 0.028)
[2024-12-14 16:40] LABS: Troponin I 0.046 ng/mL (< 0.028)
[2024-12-15 04:59] LABS: #Basophils 0.03 10x3/uL (0.0-0.2); #Eosinophils 0.14 10x3/uL (0.0-0.5); #Monocytes 0.74 10x3/uL (0.0-1.1); #Neutrophils 5.30 10x3/uL (1.5-8.4); %Basophils 0.4 % (0.0-2.0); %Eosinophils 1.9 % (0.0-6.0); %Lymphocytes 16.8 % (18.0-47.0); %Monocytes 9.8 % (0.0-10.0); %Neutrophils 70.3 % (40.0-75.0); Hematocrit 26.0 % (38.8-50.0); Hemoglobin 8.6 g/dL (13.5-17.5); Mean Corpuscular Hemoglobin 29.3 pg (27.0-33.0); Mean Corpuscular Volume 88.4 fL (81.2-95.1); Platelet Count 297 10x3/uL (150-450); Red Blood Cell (RBC) Count 2.94 10x6/uL (4.32-5.72); White Blood Cell (WBC) Count 7.54 10x3/uL (3.5-10.5)
[2024-12-16] MEDS: Senokot S 8.6-50 MG TAB PO PRN (11:45)
[2024-12-18] MEDS: Enoxaparin 80 MG (0.8 mL) SYRINGE SC SCH (12:25)
[2024-12-19 05:09] LABS: Hematocrit 26.7 % (38.8-50.0); Hemoglobin 8.8 g/dL (13.5-17.5); Mean Corpuscular Hemoglobin 28.6 pg (27.0-33.0); Mean Corpuscular Volume 86.7 fL (81.2-95.1); Platelet Count 389 10x3/uL (150-450); Red Blood Cell (RBC) Count 3.08 10x6/uL (4.32-5.72); White Blood Cell (WBC) Count 8.04 10x3/uL (3.5-10.5)
[2024-12-19 05:18] LABS: Anion Gap 14 mmol/L (10-20); BUN (Urea Nitrogen) 26 mg/dL (8.4-25.7); Calc. Creatinine Clearance 64 mL/min (70-130); Calcium 8.4 mg/dL (7.8-10.44); Carbon Dioxide 20 mmol/L (23-31); Chloride 106 mmol/L (98-107); Glucose 90 mg/dL (83-110); Potassium 3.9 mmol/L (3.5-5.1); Sodium 136 mmol/L (136-145)
[2024-12-19] MEDS ORDERED: Nitroglycerin 50 MG/250 ML BOT 0 ML ONE (08:48)
[2024-12-19] MEDS ORDERED: Lidocaine 1% (PF) 30 ML VIAL ONE (08:48)
[2024-12-19] MEDS ORDERED: Heparin 10,000 UNITS/ 10 ML VIAL ONE (08:49)
[2024-12-19] MEDS ORDERED: Iopamidol 300 61% 100 ML VIAL FS ONE (10:31)
[2024-12-19] MEDS ORDERED: diphenhydrAMINE 50 MG/ML VIAL ONE (10:47)
[2024-12-20 04:40] LABS: #Basophils 0.04 10x3/uL (0.0-0.2); #Eosinophils 0.03 10x3/uL (0.0-0.5); #Monocytes 0.90 10x3/uL (0.0-1.1); #Neutrophils 6.60 10x3/uL (1.5-8.4); %Basophils 0.4 % (0.0-2.0); %Eosinophils 0.3 % (0.0-6.0); %Lymphocytes 14.4 % (18.0-47.0); %Monocytes 10.0 % (0.0-10.0); %Neutrophils 73.3 % (40.0-75.0); Hematocrit 26.4 % (38.8-50.0); Hemoglobin 8.7 g/dL (13.5-17.5); Mean Corpuscular Hemoglobin 28.3 pg (27.0-33.0); Mean Corpuscular Volume 86.0 fL (81.2-95.1); Platelet Count 385 10x3/uL (150-450); Red Blood Cell (RBC) Count 3.07 10x6/uL (4.32-5.72); White Blood Cell (WBC) Count 9.01 10x3/uL (3.5-10.5)
[2024-12-20 04:59] LABS: ALT (SGPT) 19 U/L (Less than 45); AST (SGOT) 27 U/L (11-34); Albumin 2.6 g/dL (3.1-4.5); Alkaline Phosphatase 74 U/L (40-110); Anion Gap 14 mmol/L (10-20); BUN (Urea Nitrogen) 26 mg/dL (8.4-25.7); Bilirubin, Total 0.5 mg/dL (0.3-1.2); Calc. Creatinine Clearance 69 mL/min (70-130); Calcium 8.4 mg/dL (7.8-10.44); Carbon Dioxide 19 mmol/L (23-31); Chloride 107 mmol/L (98-107); Globulin 3.3 g/dL (2.4-3.5); Glucose 83 mg/dL (83-110); Potassium 3.9 mmol/L (3.5-5.1); Sodium 136 mmol/L (136-145)
[2024-12-20] MEDS: HYDROcodone/Acetaminophen 10/325 mg Tablet PO PRN (21:53)
[2024-12-23 10:17] VITALS: BP 125/58; TEMP 99.4
[2024-12-23] MEDS: Scopolamine 1 mg/72 hour Patch TD SCH (10:17)
== END 2024-12-23 17:00 | disposition hospice, inpatient (51) | DRG 239 ==
LOC: CSHERS 18:12 → CSHTELE 21:34
PROVIDERS: ADMIT Student in an Organized Health Care Education/Training Program; ATTEND Internal Medicine
PROC: 0Y6J0Z1 Detachment at Left Lower Leg, High, Open Approach (ICD-10-PCS; principal; 2024-12-10)
PROC: 3E033XZ Introduction of Vasopressor into Peripheral Vein, Percutaneous Approach (ICD-10-PCS; 2024-12-10)
PROC: 3E03329 Introduction of Other Anti-infective into Peripheral Vein, Percutaneous Approach (ICD-10-PCS; 2024-12-10)
PROC: 047 Lower Arteries, Dilation (ICD-10-PCS; 2024-12-19)
PROC: 047 Lower Arteries, Dilation (ICD-10-PCS; 2024-12-19)
PROC: 047 Lower Arteries, Dilation (ICD-10-PCS; 2024-12-19)
PROC: 04FP3ZZ Fragmentation of Right Anterior Tibial Artery, Percutaneous Approach (ICD-10-PCS; 2024-12-19)
PROC: 04FM3ZZ Fragmentation of Right Popliteal Artery, Percutaneous Approach (ICD-10-PCS; 2024-12-19)
PROC: 04FT3ZZ Fragmentation of Right Peroneal Artery, Percutaneous Approach (ICD-10-PCS; 2024-12-19)
DX: E11.52 Type 2 diabetes mellitus with diabetic peripheral angiopathy with gangrene (principal); I21.A1 Myocardial infarction type 2; E87.20 Acidosis, unspecified; L03.116 Cellulitis of left lower limb; I70.222 Atherosclerosis of native arteries of extremities with rest pain, left leg; I82.402 Acute embolism and thrombosis of unspecified deep veins of left lower extremity; Z51.5 Encounter for palliative care; Z66 Do not resuscitate; I25.10 Atherosclerotic heart disease of native coronary artery without angina pectoris; I48.0 Paroxysmal atrial fibrillation; E78.5 Hyperlipidemia, unspecified; I10 Essential (primary) hypertension; F32.A Depression, unspecified; M10.9 Gout, unspecified; D63.8 Anemia in other chronic diseases classified elsewhere; G25.81 Restless legs syndrome; N40.0 Benign prostatic hyperplasia without lower urinary tract symptoms; E11.42 Type 2 diabetes mellitus with diabetic polyneuropathy; E11.51 Type 2 diabetes mellitus with diabetic peripheral angiopathy without gangrene; I77.1 Stricture of artery; M35.3 Polymyalgia rheumatica; Z53.9 Procedure and treatment not carried out, unspecified reason; Z95.818 Presence of other cardiac implants and grafts; Z95.1 Presence of aortocoronary bypass graft; Z86.718 Personal history of other venous thrombosis and embolism; Z88.8 Allergy status to other drugs, medicaments and biological substances; Z79.899 Other long term (current) drug therapy; Z98.890 Other specified postprocedural states; Z79.01 Long term (current) use of anticoagulants; Z87.81 Personal history of (healed) traumatic fracture
CPT/HCPCS: 36140; 36415; 36416; 37230; 75710; 75774; 80048; 80053; 80202; 83605; 83735; 83880; 84145; 84439; 84484; 85025; 85027; 85610; 85730; 86140; 87040; 88307; 88311; 93005; 93010; 96365; 96375; 96376; 97139; 99152; 99153; C1725; C1760; C1769; C1874; C1876; C1894; C2623; C9765; C9773; J1200; J1644; J1650; J1720; J1815; J1885; J2060; J2185; J2250; J2270; J2405; J2543; J3010; J3373; J7030; J7050; J7120; J7512; Q9967